=== PATIENT | male | born 2000 | race Caucasian/White ===

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

== ENCOUNTER 2021-12-05 11:52 | Emergency (ER) | payer OTHER, SELFPAY ==
[2021-12-05 11:53] VITALS: BP 152/83; PULSE 97; RESP 16; TEMP 36.7; O2SAT 96; BMI 20.4
--- NOTE | 2021-12-05 12:17 | EDS_ITS ---
HPI <TORI Doty - Last Filed: 12/05/21 12:31> History of Present Illness Chief Complaint: General Illness Narrative Narrative: 21-year-old male with no significant ankle history presents to the emergency department with a sudden onset of right ear pain. Patient was walking to the ambulance, he had sharp pain to the right ear, feeling like a loud noise, then [id number] feeling in his right near. Patient states the pain has been ongoing, and is severe. Patient states the pain is exacerbated by moving his head, swallowing, talking. Patient denies any drainage from the right ear. Patient denies being in any submerged in water. Patient denies any history of trauma to the right ear. PFSH <TORI Doty - Last Filed: 12/05/21 12:31> [facility] Medical History (Updated 12/05/21 @ 12:28 by TORI Doty) Incarcerated umbilical hernia Umbilical hernia Home Medications methylprednisolone 4 mg tablets in a dose pack See Rx Instructions PO PER PKG DIR #21 tab 03/05/21 [Rx Last Taken Unknown] prednisone 50 mg PO DAILY #5 tab 12/05/21 [Rx Last Taken Unknown] valacyclovir 1,000 mg PO Q8H 7 Days #21 tab 12/05/21 [Rx Last Taken Unknown] Allergy/AdvReac Type Severity Reaction Status Date / Time banana Allergy Food Verified 12/05/21 11:59 Allergy tree nut Allergy Anaphylaxis Verified 12/05/21 11:59 Surgical History (Updated 12/25/19 @ 14:44 by Alyssa Bennett) History of umbilical hernia repair (~12/2019) Social History (Updated 12/25/19 @ 14:[address] Eron Morales MD) Smoking Status: Never smoker alcohol intake: never ROS <TORI Doty - Last Filed: 12/05/21 12:31> ROS ED ROS Narrative Constitutional: Negative for fever, chills, weight loss, weakness Eyes: Negative for vision loss, vision change, double vision ENT: Negative for any sore throat, congestion. Positive for right ear pain Cardiovascular: Negative for any chest pain, tightness, palpitations, racing heartbeat Respiratory: Negative for any cough, sputum production, hemoptysis, shortness of breath, shortness of breath on exertion, orthopnea Gastrointestinal: Negative for any abdominal pain, nausea, vomiting, diarrhea, constipation, blood in stool, blood in vomit : Negative for any urinary frequency, incontinence, dysuria, retention, blood in urine Muscle skeletal: Negative for any muscle joint pain, stiffness, myalgias, arthralgias, neck pain, back pain Neurological: Negative for any headache, dizziness, syncope, numbness or tingling Skin: Negative for any rashes, lumps, itching, abrasions, lacerations Psychiatric: Negative for any depression, anxiety, stress, suicidal ideation, homicidal ideation Hematologic: Negative for any easy bruising, excessive bruising, easy bleeding Allergies: Negative for any eczema, hives, rash EXAM <TORI Doty - Last Filed: 12/05/21 12:31> Physical Exam Narrative Exam Narrative: Vital signs reviewed. HEET: Head normocephalic atraumatic, TMs clear bilaterally. Posterior pharynx is clear, moist mucous membranes. Nares clear bilaterally. Patient does have sensitivity to the external auditory canal on the right side. Negative for any otitis externa, otitis media, ruptured membrane. Neck: Supple with no lymphadenopathy or tenderness. No signs of meningismus, negative jolt sign. Cardiac: Regular rate and rhythm no murmurs gallops or rubs, equal peripheral pulses bilaterally. Respiratory: Lungs clear to auscultation bilaterally. No chest tenderness. Abdomen: Soft, nontender, nondistended. No abdominal bruit or pulsatile masses. No hepatosplenomegaly Extremities: No peripheral edema, no signs of gross trauma or deformity. Active full range of motion of all extremities. Neuro: Cranial nerves II through XII intact, no focal neurological deficits. Skin: Clean dry and intact with no rash, purpura, petechiae, vesicles or pustules. Backslash flank: No CVA tenderness, no midline spinal tenderness, no deformity. Psych: Normal mood and affect. No SI, HI or acute psychosis. Const Vital Signs: 12/05/21 11:53 Temperature 98.0 F Temperature Source Temporal Pulse Rate 97 Respiratory Rate 16 Blood Pressure 152/83 H Blood Pressure Mean 106 Pulse Ox 96 Oxygen Delivery Method Room Air Positive well nourished and well developed General Appearance ED: well developed <Dr. Cole Figueredo MD - Last Filed: 12/05/21 12:36> Physical Exam Const Vital Signs: 12/05/21 11:53 Temperature 98.0 F Temperature Source Temporal Pulse Rate 97 Respiratory Rate 16 Blood Pressure 152/83 H Blood Pressure Mean 106 Pulse Ox 96 Oxygen Delivery Method Room Air [facility] <TORI Doty - Last Filed: 12/05/21 12:31> [facility] Narrative Medical decision making narrative: Patient does appear to be in mild distress secondary to pain to the right ear. Patient's physical examination was unremarkable for any acute findings. I am concerned for any sort of viral infection such as a shingles, differential also includes Tyesha Stack syndrome. Patient will be started on antiviral, as well as a short burst of prednisone. He will follow-up closely with his PCP. He also receive ENT follow-up. Patient given strict return precautions to return for any worsening uncontrolled pain, fever, chills. Patient instructed to take the medications as prescribed. He verbally understands the importance of follow-up and stable for discharge <Dr. Cole Figueredo MD - Last Filed: 12/05/21 12:36> [facility] Narrative Medical decision making narrative: I have personally performed a face to face assessment of the patient and have reviewed the JOYCE Note. I performed a substantive portion of the visit including all aspects of the following. My garcia findings include: History is remarkable for abrupt right ear pain. States it hurts more when he swallows. He has not noted any drainage or lesions. He denies headache. He denies double vision blurred vision loss of vision. He denies of sore throat. States it does hurt to swallow. He denies fever or chills. He denies neck stiffness. He denies asymmetry of his face. Exam is remarkable for hypersensitivity of the right external auditory canal. There is no erythema. There is no pimple noted since patient does have history of acne. There is no blisters noted. TM is normal. There is slight discomfort with pushing on the tragus. There is no discomfort with pulling on the auricle. There is no tenderness over the mastoid. There is no trigger point to suggest greater occipital neuralgia. There is no anterior cervical lymphadenopathy. Trachea is midline. Posterior pharynx unremarkable. Cranials 2 through 12 are intact. Medical Decision Making with hypersensitivity there is a concern that this may represent herpetic infection and specifically Tyesha Stack syndrome. We will treat with antiviral and prednisone. Other additions or changes: [None] Discharge Plan Triage Chief Complaint: General Illness ED Midlevel Provider: Jon Rose ED Provider: Cole Figueredo Dx/Rx/DC Orders Clinical Impression: Acute ear pain, Tyesha Stack auricular syndrome Instructions: ED Pain, Acute, Uncertain Cause, ED Shingles (Herpes Zoster) Prescriptions: New prednisone 50 mg tablet 50 mg PO DAILY Qty: 5 RF: 0 valacyclovir 1 gram tablet 1,000 mg PO Q8H 7 Days Qty: 21 RF: 0 No Action methylprednisolone [Medrol (Cruz)] 4 mg tablets,dose pack See Rx Instructions PO PER PKG DIR Qty: 21 RF: 0 Primary Care Provider: Maulik Encinas NP Referrals: Norbert Bhandari MD [STAFF PHYSICIAN] - 3-5 Days Maulik Encinas NP, ORGANIZATIONAL DEVELOPMENT SPECIALIST-C [Primary Care Provider] - Print Language: Tuvaluan Disposition Disposition: Home, Self Care
[2021-12-05 12:40] VITALS: BP 126/73; PULSE 71; RESP 15; O2SAT 98
== END 2021-12-05 13:06 | disposition home or self-care (01) ==
PROVIDERS: Emergency Provider Emergency Medicine; PCP Nurse Practitioner Primary Care; Visit Provider Emergency Medicine
DX: H92.09 Otalgia, unspecified ear (principal); G11.19 Other early-onset cerebellar ataxia
CPT/HCPCS: 99283

== ENCOUNTER 2022-02-07 08:15 | Emergency (ER) | payer OTHER, SELFPAY ==
[2022-02-07 08:17] VITALS: BP 128/73; PULSE 80; RESP 16; TEMP 36.4; O2SAT 99; BMI 19.8
--- NOTE | 2022-02-07 08:39 | ED.VIS.BACK ---
HPI History of Present Illness Chief Complaint: Back Informant: patient Narrative Narrative: At approximately 2200 yesterday, patient grabbed a saw that somebody handed to him. He then twisted and lowered himself to put this in a lower container in a truck. When he did that he got a sharp heat sensation in the middle of his back. He states it was not a pop. But it radiated up and down on his back. It did not go down his legs. He did not fall. But he states he is very sore if he moves or bends now. All of the pain is really in the mid lumbar area right in the middle. He has been eating drinking. He has moved his bowels and urinated without difficulty. There is no radicular symptoms down his legs. There is no weakness of his legs. He does not have a history of back issues. Staying still makes this better and weightbearing standing or moving makes it a little bit worse. [facility] Medical History Incarcerated umbilical hernia Umbilical hernia Home Medications cyclobenzaprine 10 mg tablet 10 mg PO BID PRN muscle spasm #10 tabs 02/07/22 [Rx Last Taken Unknown] naproxen 500 mg tablet 500 mg PO BID #20 tabs 02/07/22 [Rx Last Taken Unknown] Allergy/AdvReac Type Severity Reaction Status Date / Time banana Allergy Food Verified 12/05/21 11:59 Allergy tree nut Allergy Anaphylaxis Verified 12/05/21 11:59 Surgical History History of umbilical hernia repair (~12/2019) Social History Smoking Status: Never smoker alcohol intake: never ROS ROS ED Constitutional Constitutional ED: Denies chills or fever(s) Cardiovascular Cardiovascular: Denies chest pain Respiratory/Chest Respiratory/Chest: Denies dyspnea or dyspnea on exertion Gastrointestinal Gastrointestinal: Denies abdominal pain, constipation, diarrhea, melena, nausea or vomiting Genitourinary Genitourinary ED: Denies dysuria, hematuria or urinary frequency Musculoskeletal Musculoskeletal: Reports back pain; Denies neck pain Integumentary Denies Abrasions or rash Neurologic Neurologic: Denies paresthesias or weakness Hematologic/Lymphatic Hematologic/Lymphatic: Denies easy bleeding or easy bruising Allergic/Immunologic Allergic/Immunologic ED: Denies urticaria EXAM Physical Exam Const Vital Signs: 02/07/22 08:17 Temperature 97.5 F L Temperature Source Temporal Pulse Rate 80 Respiratory Rate 16 Blood Pressure 128/73 H Blood Pressure Mean 91 Pulse Ox 99 Oxygen Delivery Method Room Air Positive well nourished and well developed Constitutional Narrative: Patient is sitting quietly in the bed. He is filling out paperwork. Nontoxic in appearance. General Appearance ED: well developed and NAD HEENT Reports moist mucous membranes Negative for trauma Eyes EOMs intact bilaterally Neck no JVD Resp normal respiratory effort and clear to auscultation bilaterally Cardio regular rate and regular rhythm GI normal to inspection, nondistended, normoactive bowel sounds, soft to palpation, non-tender and non-distended Back/Spine normal to inspection Back/Spine Narrative: Patient does have some paraspinal spasm more on the right down at about L3-L5. He also has some tenderness in the midline really isolated right about L3 or L2. There is no swelling there. There is no contusion abrasion or skin change. He is able to sit up and move around well. General Back: Negative for CVA tenderness Extremity normal to inspection General Extremety ED: Negative for edema or tenderness General Extremity: Negative for edema Neuro oriented x3 and no sensory deficits noted Neuro Narrative: Patient has normal sensation. He has normal reflexes and strength. Deep Tendon Reflexes: Rt Patellar (L4): 3+, Lt Patellar (L4): 3+, Rt Ankle (S1): 2+ and Lt Ankle (S1): 2+ Deep Tendon Reflexes Back: Rt Patellar (L4): 3+, Lt Patellar (L4): 3+, Rt Ankle (S1): 2+ and Lt Ankle (S1): 2+ Psych mental status grossly normal Skin no rashes or lesions noted and no wounds MDM MDM MDM Narrative Medical decision making narrative: 4 view x-ray of the lumbar sacral area looked at by me and read by radiology shows no acute process. I explained to the patient that he likely irritated the back from the combination of bending and twisting. We demonstrated more appropriate way to do this. I will get him on nonsteroidals. Ice is important. Rest. Limited activity. I will give him a few Flexeril to take mostly at night to help to decrease chance of spasm. He should avoid working or driving on this. Return with numbness tingling weakness bowel or bladder dysfunction. Radiography Diagnostic Testing: Clinical Impression(s) from Imaging Studies Lumbar Spine X-Ray 02/07/22 08:45 IMPRESSION: Essentially unremarkable examination. Electronically Signed: Fer Stack MD at 9:34 EDT , Discharge Plan Triage Chief Complaint: Back ED Provider: Nikolay Yi Dx/Rx/DC Orders Clinical Impression: Acute lumbar myofascial strain Instructions: ED Back Sprain/Strain Prescriptions: New cyclobenzaprine 10 mg tablet 10 mg PO BID PRN (Reason: muscle spasm) Qty: 10 0RF naproxen 500 mg tablet 500 mg PO BID Qty: 20 0RF Primary Care Provider: Maulik Encinas NP Referrals: Maulik Encinas ELECTRIC POWER MACHINE OPERATOR, ELECTRIC POWER MACHINE OPERATOR-C [Primary Care Provider] - 3-5 Days if not improving Disposition Disposition: Home, Self Care
--- NOTE | 2022-02-07 08:45 | RAD_ITS ---
STUDY: X-RAY - LUMBAR SPINE REASON FOR EXAM: Male, 21 years old. Pain TECHNIQUE: 4 view(s) of the lumbar spine were obtained. COMPARISON: None FINDINGS: Normal lumbar lordosis. Very minimal dextroscoliosis probably positional. There is a normal alignment of the vertebrae. Normal vertebral bodies and endplates. Normal disc space heights. There is no demonstrated fracture. There is no demonstrated spondylolysis of the pars interarticulares. The soft tissue structures are unremarkable. RAD/L/S Spine Min 4 Views IMPRESSION: Essentially unremarkable examination. Electronically Signed: Fer Stack MD at 9:34 EDT ,
== END 2022-02-07 10:07 | disposition home or self-care (01) ==
PROVIDERS: Emergency Provider Emergency Medicine; PCP Nurse Practitioner Primary Care; Visit Provider Emergency Medicine
DX: S39.012A Strain of muscle, fascia and tendon of lower back, initial encounter (principal); X50.1XXA Overexertion from prolonged static or awkward postures, initial encounter
CPT/HCPCS: 72110; 99282

== ENCOUNTER 2023-11-15 09:01 | Emergency (ER) | payer OTHER, SELFPAY ==
[2023-11-15] VITALS (11 sets, daily range): BP systolic 124–147; BP diastolic 80–102; PULSE 62–88; RESP 7–24; TEMP 36.3–36.6; O2SAT 96–99; BMI 22.4
--- NOTE | 2023-11-15 09:21 | EKG12_ITS ---
Test Reason : CP Blood Pressure : / mmHG Vent. Rate : 062 BPM Atrial Rate : 062 BPM P-R Int : 142 ms QRS Dur : 142 ms QT Int : 416 ms P-R-T Axes : 016 093 027 degrees QTc Int : 422 ms Normal sinus rhythm Right bundle branch block Abnormal ECG Confirmed by Osbaldo Toledo ([id number]), editor & co founder TERRI HIGHTOWER ([id number]) on 11/16/2023 10:13:05 AM Referred By: ALICIA/DRAGAN Confirmed By:Osbaldo Toledo
--- NOTE | 2023-11-15 09:24 | ED.VIS.CHEST ---
HPI History of Present Illness Chief Complaint: Chest Pain Informant: patient Onset/Context/Timing Onset: Weeks Narrative Narrative: Patient presents with a 1 week history of lower chest pressure. He states he has a history of his ribs coming out on the left. His previous doctor would reduce this for him, however this physician has retired. Patient denies shortness of breath. Has been able to keep up with his normal daily activities without difficulty. Patient works at a local [employer]. He obtained an EKG this morning that revealed evidence of a right bundle branch block. In light of this he presents for evaluation. He does report having a stress test here 2 years ago as part of his preemployment clearance. He denies personal or family history of cardiac disease or blood clots. [facility] Medical History Incarcerated umbilical hernia Umbilical hernia Home Medications cyclobenzaprine 10 mg tablet 10 mg PO BID PRN muscle spasm #10 tabs 02/07/22 [Rx Last Taken Unknown] naproxen 500 mg tablet 500 mg PO BID #20 tabs 02/07/22 [Rx Last Taken Unknown] Allergy/AdvReac Type Severity Reaction Status Date / Time banana Allergy Food Verified 11/15/23 09:06 Allergy tree nut Allergy Anaphylaxis Verified 11/15/23 09:06 Surgical History History of umbilical hernia repair (~12/2019) Social History Smoking Status: Never smoker alcohol intake: never ROS ROS ED Constitutional Constitutional ED: Denies chills or fever(s) Eyes Eyes: Denies discharge from eye(s) ENT ENT ED: Denies discharge from eye(s), rhinorrhea or sore throat Cardiovascular Cardiovascular: Reports chest pain; Denies palpitations Respiratory/Chest Respiratory/Chest: Denies cough or dyspnea Gastrointestinal Gastrointestinal: Denies abdominal pain, nausea or vomiting Genitourinary Genitourinary ED: Denies dysuria Musculoskeletal Musculoskeletal: Denies back pain or extremity pain Integumentary Denies Abrasions or rash Neurologic Neurologic: Denies headache(s) or weakness Psychiatric Psychiatric: Denies anxiety or depression Allergic/Immunologic Allergic/Immunologic ED: Denies lip swelling or urticaria EXAM Physical Exam Const Vital Signs: 11/15/23 09:02 11/15/23 09:02 11/15/23 09:21 Temperature 97.4 F L 97.4 F L Temperature Source Temporal Temporal Pulse Rate 67 67 Respiratory Rate 16 16 Blood Pressure 147/85 H 147/85 H Blood Pressure Mean 105 105 Pulse Ox 99 99 Oxygen Delivery Method Room Air Room Air Room Air 11/15/23 10:01 11/15/23 09:36 11/15/23 09:45 Temperature Temperature Source Pulse Rate 88 68 Respiratory Rate 18 7 L Blood Pressure 128/81 H 124/91 H Blood Pressure Mean 96 102 Pulse Ox 99 98 Oxygen Delivery Method Room Air 11/15/23 09:47 11/15/23 10:00 11/15/23 10:15 Temperature Temperature Source Pulse Rate 69 62 67 Respiratory Rate 10 L 20 H 21 H Blood Pressure 128/81 H 128/84 H Blood Pressure Mean 94 98 Pulse Ox 98 96 98 Oxygen Delivery Method 11/15/23 10:30 11/15/23 10:45 11/15/23 11:00 Temperature Temperature Source Pulse Rate 69 63 74 Respiratory Rate 16 18 18 Blood Pressure 132/80 H 144/93 H 139/85 H Blood Pressure Mean 94 107 99 Pulse Ox 98 99 99 Oxygen Delivery Method Positive well nourished and well developed General Appearance ED: well developed HEENT Reports moist mucous membranes Eyes EOMs intact bilaterally Chest Wall inspection of chest normal Chest Narrative: Mild tenderness to the left lower ribs. No crepitus. Resp normal respiratory effort and clear to auscultation bilaterally Cardio regular rate and regular rhythm GI soft to palpation and non-tender Extremity normal to inspection Neuro oriented x3 and no sensory deficits noted Motor Exam: strength 5/5 throughout Psych mental status grossly normal Skin no rashes or lesions noted Heart Score History: Slightly/Non-Suspicious ECG: Normal Age: </= 45 years Risk Factors: No Risk Factors Troponin: </= Normal Limit Score: 0 MDM MDM MDM Narrative Medical decision making narrative: Patient placed on quality assurance monitor chassis. EKG obtained to evaluate for cardiac arrhythmia/ischemia. IV line established. Labwork obtained to evaluate for leukocytosis, anemia, and electrolyte derangement. Chest x-ray obtained to evaluate for acute lung pathology, cardiac size, or mediastinal abnormality. History & Record Review Discussion w/independent historian: Patient Additional record(s) reviewed:: Prior outpatient record Lab Data Attestation: I reviewed the patient's lab results. Labs: Laboratory Results - last 24 hr 11/15/23 11/15/23 09:25 10:24 WBC 6.4 RBC 5.74 Hgb 15.9 Hct 46.4 MCV 80.8 MCH 27.7 MCHC 34.3 RDW Std Deviation 37.7 RDW Coeff of [place] 13.0 Plt Count 115 L MPV 12.6 H Immature Gran % (Auto) 0.200 Neut % (Auto) 49.0 Lymph % (Auto) 30.7 [place] % (Auto) 6.2 Eos % (Auto) 12.8 H Baso % (Auto) 1.1 H Absolute Neuts (auto) 3.2 Absolute Lymphs (auto) 1.97 Nucleated RBC % 0 D-Dimer Quant (PE/DVT) 0.35 Sodium 139 Potassium 3.3 L Chloride 107 Carbon Dioxide 27.0 Anion Gap 5 BUN 17 Creatinine 1.32 H Estim Creat Clear Calc 92.92 Est GFR (MDRD) Af Amer 87 Est GFR (MDRD) Non-Af 72 BUN/Creatinine Ratio 12.9 Glucose 104 Calcium 9.1 Troponin I High Sens 4 Radiography Chest X-Ray - ED: 2 View, Read by ED Physician, Normal, Heart, Lungs and Mediastinum Diagnostic Testing: Clinical Impression(s) from Imaging Studies Chest X-Ray 11/15/23 09:40 IMPRESSION: Normal x-ray examination of the chest. Electronically Signed: Charles Camilo MD at 10:09 EDT Reading Location ID and State: [facility] / [place] , Service support , EKG Initial EKG: Attestation: I personally reviewed and interpreted this EKG as follows: Interpretation: Sinus Rhythm (Sinus rhythm at 62 bpm. Right bundle branch block noted.) Treatment and Re-Evaluation :: Patient does have right bundle branch block noted on his EKG. I did review his stress test that he had performed 2 years ago. It does not appear that he had a right bundle branch block at that time. CBC and chemistry studies significantly for slightly low potassium at 3.3. This is replaced orally. Creatinine is also slightly bumped to 1.32. Patient is given a liter of IV fluids. D-dimer is negative at 0.35 and troponin is normal at 4. Two-view chest x-ray per my interpretation reveals no acute abnormalities. Radiology interpretation reviewed and agrees. On repeat evaluation patient resting comfortably. Test results are discussed with him. He is reassured with our workup here and will follow with his primary care physician. Return instructions given. Discharge Plan Triage Chief Complaint: Chest Pain ED Provider: Rachel Lu Dx/Rx/DC Orders Clinical Impression: Right bundle branch block, Chest wall pain Instructions: Right Bundle Branch Block, ED Chest Pain, Noncardiac Prescriptions: No Action cyclobenzaprine 10 mg tablet 10 mg PO BID PRN (Reason: muscle spasm) Qty: 10 0RF naproxen 500 mg tablet 500 mg PO BID Qty: 20 0RF Primary Care Provider: Maulik Encinas NP Referrals: Maulik Encinas NP, CONSUMER MARKETING MANAGER-C [Primary Care Provider] - 1-2 Weeks Disposition Disposition: Home, Self Care
--- NOTE | 2023-11-15 09:40 | RAD_ITS ---
STUDY: X-RAY CHEST REASON FOR EXAM: Male, 23 years old. Chest pain. TECHNIQUE: Frontal and lateral views of the chest. COMPARISON: None. FINDINGS: The lungs are clear and expanded. There is no demonstrated pleural abnormality. Normal size heart. Normal mediastinum and talita. Normal visualized pulmonary arteries. Normal visualized aortic arch and descending thoracic aorta. Normal visualized thoracic spine. Normal visualized ribs, clavicles, and shoulders. No abnormality of the visualized soft tissue structures of the upper abdomen. RAD/Chest PA and Lateral IMPRESSION: Normal x-ray examination of the chest. Electronically Signed: Charles Camilo MD at 10:09 EDT ,
[2023-11-15 09:47] LABS: Absolute Lymphocyte Count 1.97 X10^3/uL (0.83-4.51); Absolute Neutrophil Count 3.2 X10^3/uL (2.0-7.7); Basophil# 0.07 X10^3/uL; Basophil% 1.1 % (0-1); Eosinophil# 0.82 X10^3/uL; Eosinophils% 12.8 % (0-5); Hematocrit 46.4 % (40-54); Hemoglobin 15.9 g/dL (13.0-16.5); Lymphocyte # 1.97 X10^3/ul (0.83-4.51); Lymphocyte % 30.7 % (19-41); Mean Corp Hgb Conc 34.3 g/dL (32-36); Mean Corpuscular Hgb 27.7 pg (27.0-32.0); Mean Corpuscular Volume 80.8 fL (80-94); Mean Platelet Vol. 12.6 fl (6.2-12.0); Monocyte% 6.2 % (0-10); NRBC Flagged by Analyzer 0 % (0-5); Neutrophil # 3.15 X10^3/uL (2.7-7.7); Platelet Count 115 K/mm3 (150-450); RBC Distribution Width SD 37.7 fl (35.1-43.9); Red Blood Count 5.74 M/mm3 (4.6-6.2); White Blood Count 6.4 K/mm3 (4.4-11.0)
[2023-11-15 10:06] LABS: Anion Gap 5 (5-15); BUN 17 mg/dL (7-18); BUN/Creat Ratio 12.9 RATIO (10-20); Calcium,Total 9.1 mg/dL (8.5-10.1); Chloride 107 mmol/L (98-107); Creatinine, Serum 1.32 mg/dL (0.70-1.30); EST Glomerular Filtration Rate 72 mL/min (>60); Est Glom Filt Rate - Afr Amer 87 mL/min (>60); Estimated Creatinine Clearance 92.92 ml/min; Glucose 104 mg/dL (74-106); Potassium 3.3 mmol/L (3.5-5.1); Sodium Level 139 mmol/L (136-145); Troponin-I HS 4 pg/mL (3.0-78.0)
[2023-11-15] MEDS: 0.9% Normal Saline (1000mL) 1,000 ML 999 ML IV (10:33)
[2023-11-15] MEDS: Potassium Chloride Oral Tablet 20 MEQ 40 MEQ PO (10:36)
[2023-11-15 10:49] LABS: D-Dimer Quantitative (DVT/PE) 0.35 FEU/ug/m (0.27-0.49)
== END 2023-11-15 11:38 | disposition home or self-care (01) ==
PROVIDERS: Emergency Provider Emergency Medicine; PCP Nurse Practitioner Primary Care; Visit Provider Emergency Medicine
DX: R07.89 Other chest pain (principal); I45.10 Unspecified right bundle-branch block
CPT/HCPCS: 71046; 80048; 84484; 85025; 85379; 93005; 96360; 99284; J7030; A4216